=== PATIENT | female | born 1980 | race African-American/Black ===

== ENCOUNTER 2020-01-10 11:02 | Outpatient (CLI) | payer BC, SELFPAY ==
--- NOTE | ~2020-01-10 | US_ITS ---
US axilla BI DATE: 01/10/2020 11:56 INDICATION: Referring physician felt lumps in the axillary areas. TECHNIQUE: Real-time imaging of the bilateral axillary soft tissues COMPARISON: None FINDINGS: No suspicious mass or lymphadenopathy is noted in either axilla. IMPRESSION: Negative Reviewed, dictated and finalized at [facility]. Reviewed, dictated and finalized at [facility]. IMPRESSION: Negative
== END 2020-01-10 11:03 | disposition home or self-care (01) ==
PROVIDERS: PCP Emergency Medicine; Visit Provider Internal Medicine Hematology & Oncology
DX: R59.0 Localized enlarged lymph nodes (principal)
CPT/HCPCS: 76882